=== PATIENT | male | born 1960 | race African-American/Black ===

== ENCOUNTER 2021-06-26 15:40 | Emergency (ER) | payer MEDICAID ==
[~2021-06-26] VITALS: Ht 182.9 cm; Wt 104.5 kg
[2021-06-26 16:01] LABS: BASOPHILS % 0.5 % (0.0-2.0); EOSINOPHILS % 1.8 % (0.0-5.0); HEMATOCRIT. 46.8 % (36.0-48.0); HEMOGLOBIN. 15.7 g/dL (12.0-16.0); LYMPHOCYTES % 28.8 % (20.0-50.0); MEAN CORPUSCULAR HEMOGLOBIN 29.7 pg (28.0-32.0); MEAN CORPUSCULAR VOLUME 88.7 fL (81.0-99.0); MEAN PLATELET VOLUME 9.3 fl (7.4-10.4); MONOCYTES % 10.5 % (2.0-8.0); NEUTROPHILS % 58.4 % (40.0-76.0); PLATELET 170 x1000/uL (130-400); RED BLOOD CELL COUNT 5.28 mill/uL (4.2-5.4); RED CELL DISTRIBUTION WIDTH 14.7 % (11.6-14.6)
[2021-06-26 16:08] LABS: CHLORIDE 107 mEq/L (98-107)
[2021-06-26 16:13] LABS: ETHANOL BLOOD < 10 mg/dL
[2021-06-26] MEDS ORDERED: IOHEXOL-350 100 ML BOTTLE ONE (16:22)
[2021-06-26 16:34] LABS: CLARITY URINE CLEAR (CLEAR); COLOR URINE YELLOW (YELLOW); KETONES URINE NEGATIVE (NEGATIVE); LEUKOCYTE ESTERASE URINE NEGATIVE (NEGATIVE); NITRITE URINE NEGATIVE (NEGATIVE); OCCULT BLOOD URINE 1+ (NEGATIVE); PROTEIN URINE NEGATIVE (NEGATIVE); SPECIFIC GRAVITY URINE 1.036 (1.005-1.030); UROBILINOGEN URINE 0.2 E.U./dL (0.2-1.0)
[2021-06-26] MEDS ORDERED: ASPIRIN 325MG EC TABLET PO ONE (17:30)
[2021-06-26] MEDS ORDERED: ATORVASTATIN CALCIUM 40MG TABLET PO SCH (17:30)
[2021-06-26 20:00] VITALS: BP 152/93
[2021-06-26] MEDS ORDERED: ALBUTEROL (0.083%) 2.5MG/3ML NEB HHN ONE (20:15)
[2021-06-27 12:10] LABS: *AMPHETAMINES SCREEN URINE NEGATIVE (NEGATIVE); *BENZODIAZEPINES SCREEN URINE NEGATIVE (NEGATIVE); *COCAINE SCREEN URINE PRESUMTIVE POSITIVE (NEGATIVE)
[2021-06-27 12:11] LABS: CANNABINOID URINE SCREEN NEGATIVE (NEGATIVE); OPIATES URINE SCREEN NEGATIVE (NEGATIVE); PHENCYCLIDINE URINE SCREEN NEGATIVE (NEGATIVE)
[2021-06-28 14:00] LABS: METHADONE URINE SCREEN NEGATIVE (NEGATIVE)
== END 2021-06-26 21:10 | disposition short-term general hospital (02) ==
LOC: EDSEX 15:40 → ER 15:40
DX: I63.9 Cerebral infarction, unspecified (principal); R06.02 Shortness of breath; Z20.822 Contact with and (suspected) exposure to COVID-19
CPT/HCPCS: 36415; 70450; 70496; 70498; 71045; 80053; 80305; 80320; 81003; 84484; 85025; 87426; 94640; 99291; Q9967; Z7610; G0480

== ENCOUNTER 2024-09-13 13:40 | Emergency (ER) | payer MEDICAID ==
[~2024-09-13] VITALS: Ht 182.9 cm; Wt 90.0 kg
[2024-09-13 13:42] VITALS: O2SAT 98
[2024-09-13] MEDS: HYDROCODONE/ACETAMINOPHEN 5/325MG TABLET PO ONE (17:53)
[2024-09-13] MEDS: DEXAMETHASONE 4MG/ML 1ML VIAL IM ONE (17:53)
[2024-09-13] MEDS ORDERED: T3 PO (18:43)
[2024-09-13 19:14] VITALS: BP 142/90; PULSE 80; RESP 14; TEMP 37; O2SAT 98
== END 2024-09-13 19:22 | disposition home or self-care (01) ==
LOC: ER 13:40
DX: G89.29 Other chronic pain (principal); M54.50 Low back pain, unspecified; E11.9 Type 2 diabetes mellitus without complications; I11.0 Hypertensive heart disease with heart failure; I50.9 Heart failure, unspecified; J45.909 Unspecified asthma, uncomplicated; F10.90 Alcohol use, unspecified, uncomplicated; Z79.52 Long term (current) use of systemic steroids; Y90.9 Presence of alcohol in blood, level not specified
CPT/HCPCS: 99283; 96372; J1100

== ENCOUNTER 2024-11-28 06:51 | Emergency (ER) | payer MEDICAID ==
[~2024-11-28] VITALS: Ht 182.9 cm; Wt 84.0 kg
[~2024-11-28 06:51] MED LIST: T3 PO
[2024-11-28 06:57] VITALS: O2SAT 97
[2024-11-28 06:59] VITALS: BP 166/90; PULSE 62; RESP 18; TEMP 36.7; O2SAT 97
[2024-11-28] MEDS ORDERED: TOPUD PO (07:59)
== END 2024-11-28 08:11 | disposition home or self-care (01) ==
LOC: ER 06:51
DX: S49.91XA Unspecified injury of right shoulder and upper arm, initial encounter (principal); M54.2 Cervicalgia; J44.89 Other specified chronic obstructive pulmonary disease; I25.10 Atherosclerotic heart disease of native coronary artery without angina pectoris; I11.0 Hypertensive heart disease with heart failure; I50.9 Heart failure, unspecified; E03.9 Hypothyroidism, unspecified; X58.XXXA Exposure to other specified factors, initial encounter; Y93.89 Activity, other specified; Y92.89 Other specified places as the place of occurrence of the external cause; Y99.8 Other external cause status
CPT/HCPCS: 71045; 73000; 99284